=== PATIENT | female | born 1935 | race Caucasian/White ===

== ENCOUNTER 2025-04-18 11:42 | Emergency (ER) | payer MEDICARE, OTHER ==
[2025-04-18 11:56] VITALS: BP 188/86; PULSE 75
== END 2025-04-18 12:49 | disposition home or self-care (01) ==
LOC: VM.ED 11:42 → SUPCPDRO 11:42 → VM.ED 12:49
DX: S01.01XA Laceration without foreign body of scalp, initial encounter (principal); I10 Essential (primary) hypertension; J45.909 Unspecified asthma, uncomplicated; Z90.710 Acquired absence of both cervix and uterus; Z88.1 Allergy status to other antibiotic agents; Z88.2 Allergy status to sulfonamides; Z88.7 Allergy status to serum and vaccine; Z88.8 Allergy status to other drugs, medicaments and biological substances; Z79.51 Long term (current) use of inhaled steroids; Z79.899 Other long term (current) drug therapy; W01.198A Fall on same level from slipping, tripping and stumbling with subsequent striking against other object, initial encounter
CPT/HCPCS: 12001; 99283; A9270